=== PATIENT | male | born 1985 | race Caucasian/White ===

== ENCOUNTER → 2018-04-22 | Outpatient (CLI) | payer OTHER ==
--- NOTE | 2018-04-22 12:24 | MRI ---
EXAM DESCRIPTION: Cervical Spine CLINICAL HISTORY: 32 years Male, M47.812 COMPARISON: CT cervical spine dated 01/13/2009. TECHNIQUE: Multiplanar, multiecho imaging of the cervical spine was performed without gadolinium administration. FINDINGS: The craniocervical junction is intact. The odontoid process demonstrates normal alignment with lateral masses of C2. The normal lordotic curvature of the cervical spine is well preserved. The vertebral body heights are well-maintained with no acute compression deformity. Multilevel intervertebral disc space narrowing is noted. The visualized spinal cord demonstrates no signal abnormality. The visualized prevertebral and paravertebral soft tissues appear grossly unremarkable. C2-C3: Mild left neural foraminal narrowing secondary to uncovertebral joint arthropathy. C3-C4: Mild to moderate left neural foraminal narrowing secondary to uncovertebral joint arthropathy. C4-C5: Moderate right and [id number] left neural foraminal narrowing secondary to uncovertebral joint arthropathy. C5-C6: Posterior disc osteophyte complex with resultant mild canal stenosis and moderate to severe bilateral neural foraminal narrowing. C6-C7: Posterior disc osteophyte complex with resultant moderate canal stenosis and moderate to severe bilateral neural foraminal narrowing. C7-T1: No evidence of disc herniation. No significant canal stenosis or neural foraminal narrowing. IMPRESSION: Multilevel degenerative disc disease and uncovertebral joint arthropathy with variable degrees of neural foraminal narrowing, worse at C5-C6 and C6-C7 levels. Electronically signed by: Taylor Joseph MD 04/22/2018 12:23 PM CDT
== END ==
LOC: MRI 09:35
PROVIDERS: ATTEND Anesthesiology
DX: M47.812 Spondylosis without myelopathy or radiculopathy, cervical region (principal)